=== PATIENT | male | born 1955 | race Two or more races ===

== ENCOUNTER 2018-07-24 23:18 | Emergency (ER) | payer SELFPAY ==
[~2018-07-24] VITALS: Ht 177.8 cm; Wt 127.0 kg
[2018-07-25 00:08] VITALS: BP 128/69
[2018-07-25] MEDS ORDERED: TDAP [DIPH/PERTUSSIS/TET] 0.5 ML VIAL IM ONE ×2 (00:30→00:42)
[2018-07-25] MEDS ORDERED: CEPHALEXIN MONOHYDRATE 500 MG CAPSULE PO ONE ×2 (00:42→01:00)
== END 2018-07-25 00:54 | disposition home or self-care (01) ==
LOC: ER 23:32
DX: S61.401A Unspecified open wound of right hand, initial encounter (principal); I10 Essential (primary) hypertension; E78.00 Pure hypercholesterolemia, unspecified; I48.91 Unspecified atrial fibrillation; Y28.8XXA Contact with other sharp object, undetermined intent, initial encounter; Y93.89 Activity, other specified; Y92.090 Kitchen in other non-institutional residence as the place of occurrence of the external cause; Y99.8 Other external cause status
CPT/HCPCS: 90471; 90715; 99283; A4606; A6402; Z7610